=== PATIENT | male | born 1955 | race Caucasian/White ===

== ENCOUNTER 2018-10-24 01:48 | Inpatient (IN) | payer BC, OTHER ==
--- NOTE | 2018-10-24 02:16 | PDOC ---
History of Present Illness - General Stated Complaint: CHEST PAIN Time Seen by Provider: 10/24/18 02:16 - History of Present Illness Initial Comments: 10/24/18 03:01 The patient is a 62 year old male with a history of HTN, HLD, Heart Murmur who presents for evaluation of racing heart. The patient reports that he began experiencing a sensation of racing heart with associated palpitations and a flushed sensation throughout the evening preventing him from sleeping prompting his presentation to the ED for further evaluation. He notes that he saw his primary care provider Dr. Ruff yesterday who noted that his known heart murmur was more prominent than usually and was schedule for echo next week. The patient notes in addition that he has been more hypertensive than usual over the past 24 hours. He otherwise denies fevers, chills, SOB, chest pain, nausea, vomiting, abdominal pain, or changes with urination or bowel movements. Review of Systems - Review of Systems Comments:: 10/24/18 03:07 Constitutional: No fevers, chills, fatigue, malaise HEENT: No Rhinorrhea, nasal congestion, visual changes Cardiovascular: Palpitations, Lightheadedness. No chest pain, syncope, Respiratory: No Cough, SOB, Hemoptysis, Gastrointestinal: No Abdominal pain, Nausea, Vomiting, Constipation, Diarrhea, Melena Genitourinary: No Dysuria, Frequency, Urgency, Hesitancy, Hematuria, Flank pain Musculoskeletal: No Myalgia, arthralgia Skin: No rashes, itching, bruising, pallor Neurologic: No Headache, Dizziness, Numbness, Weakness, or Tingling Psychiatric: No Hallucinations. No SI or HI *Physical Exam - Physical Exam Comments: 10/24/18 03:08 General Appearance: Nourished. No Apparent Distress HEENT: No Pharyngeal Erythema, Tonsillar Exudate, Tonsillar Erythema Neck: No Cervical Lymphadenopathy Respiratory/Chest: Lungs Clear, Normal Breath Sounds. No Crackles, Rales, Rhonchi, Wheezing Cardiovascular: Regular Rhythm, Regular Rate. 2/6 systolic murmur noted on exam. No Gallops, Rubs Gastrointestinal/Abdominal: Normal Bowel Sounds, Soft. No Guarding, Rebound, Tenderness Musculoskeletal: No CVA Tenderness Extremity: Normal Capillary Refill Integumentary: Normal Color, Dry, Warm Neurologic: Fully Oriented, Alert, Normal Mood/Affect, Normal Response, ED Treatment Course - LABORATORY CBC & Chemistry Diagram: 10/24/18 03:00 10/24/18 03:00 Medical Decision Making - Medical Decision Making 10/24/18 03:09 The patient is a 62 year old male with a history of HTN, HLD, Heart Murmur who presents for evaluation of racing heart. Differential includes but is not limited to: ACS, Arrhythmia, thyroid disfunction, Infectious, Metabolic Derangement. Given the patient's history and physical exam, we will obtain a cbc, cmp, troponin, tsh, ekg, chest plain film to evaluate further. We will continue to monitor and reassess while here in the ED. 10/24/18 04:42 CBC, cmp, troponin, tsh are unremarkable. Chest plain film demonstrates no acute findings. Given the patient's cardiac risk factors and symptoms, we believe he requires observation admission for further monitoring and cardiology eval. We discussed the case with the admitting team who accepted the patient for admission. *DC/Admit/Observation/Transfer Diagnosis at time of Disposition: Palpitations, Near syncope - Discharge Dispostion Condition at time of disposition: Stable Decision to Admit order: Yes - Referrals - Patient Instructions - Post Discharge Activity
--- NOTE | 2018-10-24 02:41 | PDOC ---
Attending Attestation - Resident Resident Name: Eddie Larose - ED Attending Attestation I have performed the following: I have examined & evaluated the patient, The case was reviewed & discussed with the resident, I agree w/resident's findings & plan - HPI HPI: 10/24/18 03:49 62-year-old male with palpitations, worsening now with a flushed sensation. Patient was told by his primary care physician that he should follow up with cardiology because he was found to have a worsening murmur in the office today. Patient states the palpitations became worse overnight prompting him to come in for evaluation. There is no associated chest pain. - Physicial Exam PE: 10/24/18 03:50 GENERAL: Awake, in no acute distress HEAD: No signs of trauma EYES: ENT:clear without exudates. Moist mucosa NECK: Normal ROM, LUNGS:. Normal work of breathing. HEART: Regular rate and rhythm, ABDOMEN: Soft, nondistended CHEST WALL: BACK: No midline tenderness. EXTREMITIES:. No erythema, or tenderness NEUROLOGICAL: Alert, SKIN: Warm, Dry - Medical Decision Making 10/24/18 03:50 62-year-old male with intermittent palpitations and lightheadedness/flushing now with worsening murmur EKG shows a sinus rhythm with some artifact Plan for observation due to worsening symptoms
[2018-10-24 02:59] VITALS: BMI 36.6
[2018-10-24 03:12] LABS: BASO % 0.5 % (0-2.0); EOS % 1.3 % (0-4.5); HEMATOCRIT 51.3 % (35.4-49); HEMOGLOBIN 17.1 GM/dL (11.7-16.9); LYMPH % 28.3 % (8-40); MCH 28.3 pg (25.7-33.7); MCHC 33.4 g/dl (32.0-35.9); MEAN CELL VOLUME 84.8 fl (80-96); MEAN PLT VOLUME 9.2 fl (7.5-11.1); MONO % 6.8 % (3.8-10.2); NEUT % 63.1 % (42.8-82.8); PLATELET COUNT 159 K/MM3 (134-434); RBC 6.04 M/mm3 (4.00-5.60); WHITE BLOOD COUNT 6.8 K/mm3 (4.0-10.0)
[2018-10-24 03:52] LABS: ALBUMIN 4.2 g/dl (3.4-5.0); ALK PHOS 88 U/L (45-117); ANION GAP 6 MMOL/L (8-16); BILIRUBIN,TOTAL 0.6 mg/dL (0.2-1); BLOOD UREA NITROGEN 20 mg/dL (7-18); CHLORIDE 104 mmol/L (98-107); CO2 27 mmol/L (21-32); CREATININE 1.2 mg/dL (0.55-1.3); GLUCOSE,RANDOM 93 mg/dL (74-106); POTASSIUM 4.9 mmol/L (3.5-5.1); SGOT/AST 36 U/L (15-37); SGPT/ALT 18 U/L (13-61); SODIUM 137 mmol/L (136-145); TOT PROT 7.8 g/dl (6.4-8.2)
--- NOTE | 2018-10-24 04:38 | HP ---
CHIEF COMPLAINT: Palpitations, Near Syncope PCP: Dr. Ruff HISTORY OF PRESENT ILLNESS: This is a 62 y/o man with a past medical of Hypertension, Hyperlipidemia, Heart Murmur. Who presents to the ED with palpitations, SOB, and dizziness x last night. Patient reports being awakened from sleep with the feeling that his heart was racing. He reports that the palpitations lasted for one hour. He reports seeing his PCP yesterday and of note his Heart Murmur was louder. Patient reports being scheduled for a Echo and Carotid Doppler. Patient's reports that he was on the wrong medication for about 1 month. Patient denies fever, chills, cough, CP, AP, N/V/D, constipation, dysuria. ER course was notable for: (1) Troponin I 0.02 (2) EKG- SR with artifact (3) Chest Xray- image no infiltrate no effusions Recent Travel: None PAST MEDICAL HISTORY: HTN HLD Heart Murmur PAST SURGICAL HISTORY: Right Rotator Cuff Repair Social History: Smoking: Former 1PPD 40+ hx, quit 4 yrs ago Alcohol: Occasional Drugs: Denies Lives with and child Family History: Father- Bone Ca, Mother- COPD, HOME MEDICATIONS: REVIEW OF SYSTEMS CONSTITUTIONAL: Absent: fever, chills, diaphoresis, generalized weakness, malaise, loss of appetite, weight change HEENT: Absent: rhinorrhea, nasal congestion, throat pain, throat swelling, difficulty swallowing, mouth swelling, ear pain, eye pain, visual changes CARDIOVASCULAR: near syncope, palpitations Absent: chest pain, irregular heart rate, lightheadedness, peripheral edema RESPIRATORY: shortness of breath Absent: cough, dyspnea with exertion, orthopnea, wheezing, stridor, hemoptysis GASTROINTESTINAL: Absent: abdominal pain, abdominal distension, nausea, vomiting, diarrhea, constipation, melena, hematochezia GENITOURINARY: Absent: dysuria, frequency, urgency, hesitancy, hematuria, flank pain, genital pain MUSCULOSKELETAL: Absent: myalgia, arthralgia, joint swelling, back pain, neck pain SKIN: Absent: rash, itching, pallor HEMATOLOGIC/IMMUNOLOGIC: Absent: easy bleeding, easy bruising, lymphadenopathy, frequent infections ENDOCRINE: Absent: unexplained weight gain, unexplained weight loss, heat intolerance, cold intolerance NEUROLOGIC: dizziness Absent: headache, focal weakness or paresthesias, unsteady gait, seizure, mental status changes, bladder or bowel incontinence PSYCHIATRIC: Absent: anxiety, depression, suicidal or homicidal ideation, hallucinations. PHYSICAL EXAMINATION Vital Signs - 24 hr 10/24/18 01:48 Temperature 98.8 F Pulse Rate 59 L Respiratory 17 Rate Blood Pressure 145/91 O2 Sat by Pulse 97 Oximetry (%) GENERAL: Awake, alert, and fully oriented, in no acute distress. HEAD: Normal with no signs of trauma. EYES: Pupils equal, round and reactive to light, extraocular movements intact, sclera anicteric, conjunctiva clear. No lid lag. EARS, NOSE, THROAT: Ears normal, nares patent, oropharynx clear without exudates. Moist mucous membranes. NECK: Normal range of motion, supple without lymphadenopathy, JVD, or masses. LUNGS: Breath sounds equal, clear to auscultation bilaterally. No wheezes, and no crackles. No accessory muscle use. HEART: Regular rate and rhythm, normal S1 and S2, No rub or gallop. Systolic murmur ABDOMEN: Soft, nontender, not distended, normoactive bowel sounds, no guarding, no rebound, no masses. No hepatomegaly or splenomegaly. MUSCULOSKELETAL: Normal range of motion at all joints. No bony deformities or tenderness. No CVA tenderness. UPPER EXTREMITIES: 2+ pulses, warm, well-perfused. No cyanosis. No clubbing. No peripheral edema. LOWER EXTREMITIES: 2+ pulses, warm, well-perfused. No calf tenderness. No peripheral edema. NEUROLOGICAL: Cranial nerves II-XII intact. Normal speech. Normal gait. PSYCHIATRIC: Cooperative. Good eye contact. Appropriate mood and affect. SKIN: Warm, dry, normal turgor, no rashes or lesions noted, normal capillary refill. Laboratory Results - last 24 hr 10/24/18 10/24/18 03:00 03:00 WBC 6.8 RBC 6.04 H Hgb 17.1 H Hct 51.3 H MCV 84.8 MCH 28.3 MCHC 33.4 RDW 15.0 Plt Count 159 MPV 9.2 Absolute Neuts (auto) 4.3 Neutrophils % 63.1 Lymphocytes % 28.3 Monocytes % 6.8 Eosinophils % 1.3 Basophils % 0.5 Nucleated RBC % 0 Sodium 137 Potassium 4.9 Chloride 104 Carbon Dioxide 27 Anion Gap 6 L BUN 20 H Creatinine 1.2 Creat Clearance w eGFR 61.76 Random Glucose 93 Calcium 9.0 Total Bilirubin 0.6 AST 36 ALT 18 Alkaline Phosphatase 88 Creatine Kinase 135 Troponin I < 0.02 Total Protein 7.8 Albumin 4.2 TSH 1.31 ASSESSMENT/PLAN: This is a 62 y/o man with a PMHx of HTN, HLD, Heart Murmur, placed on Telemetry Observation for Near Syncope, Palpitations for further evaluation of their emergent condition. Plan: See Problem List FEN PO fluids as tolerated Replete lytes prn Low Na, Low Cholesterol Diet DVT ppx OOB SCDs Consider AC if LOS > 48 hrs Code Status: Full Code Dispo: Observation Problem List - Problem (1) Near syncope Assessment/Plan: Likely secondary to arrhythmia Continue cardiac monitoring Appreciate Cardiology consult Echo Carotid Doppler Lipid Panel Fall Precautions Monitor CBC, BMP Code(s): R55 - SYNCOPE AND COLLAPSE (2) Palpitations Assessment/Plan: Continue cardiac monitoring Appreciate Cardiology consult Serial Enzymes neg x1 will trend Echo in am Carotid Doppler in am Code(s): R00.2 - PALPITATIONS (3) HTN (hypertension) Assessment/Plan: Stable Monitor BP Continue home meds Monitor renal function Code(s): I10 - ESSENTIAL (PRIMARY) HYPERTENSION Visit type - Emergency Visit Emergency Visit: Yes ED Registration Date: 10/24/18 Care time: The patient presented to the Emergency Department on the above date and was hospitalized for further evaluation of their emergent condition. - New Patient This patient is new to me today: Yes Date on this admission: 10/24/18 - Critical Care Critical Care patient: No
[2018-10-24 05:49] LABS: URINE APPEARANCE CLEAR; URINE BILIRUBIN NEGATIVE (NEGATIVE); URINE COLOR YELLOW; URINE GLUCOSE (UA) NEGATIVE (NEGATIVE); URINE KETONE NEGATIVE (NEGATIVE); URINE LEUK ESTERASE NEGATIVE (NEGATIVE); URINE NITRITE NEGATIVE (NEGATIVE); URINE PROTEIN NEGATIVE (NEGATIVE); URINE UROBILINOGEN 0.2 mg/dL (0.2-1.0)
--- NOTE | 2018-10-24 08:34 | EKG ---
Test Reason : Blood Pressure : / mmHG Vent. Rate : 062 BPM Atrial Rate : 062 BPM P-R Int : 124 ms QRS Dur : 082 ms QT Int : 424 ms P-R-T Axes : 053 018 051 degrees QTc Int : 430 ms NORMAL SINUS RHYTHM WITH SINUS ARRHYTHMIA LOW VOLTAGE QRS BORDERLINE ECG NO PREVIOUS ECGS AVAILABLE Confirmed by MD AQUILES, KOLBY ([id number]) on 10/24/2018 8:34:27 AM Referred By: Donita ANDERSON Confirmed By:KOLBY KWAN MD
--- NOTE | 2018-10-24 09:28 | CON.CARD ---
Consult Consult Specialty:: Cardiology Referred by:: Dr. Ruff Reason for Consultation:: palpitations - History of Present Illness Chief Complaint: palpitations History of Present Illness: 62 year old man with a pmh of HTN, HLD, Heart Murmur admitted with c/o palpitations. pt seen and examined in the ER in nad. states he had a recurrent brief episode of palpitations this am while in the ER. Tele reviewed, correlated with PVCs. pt states episode last night woke him from sleep and was associated with a flushed sensation. notes his BP has been higher than usual as he has been on a lower dose of Olmesartan. denies chest pain, sob, syncope or near syncope. no pnd, orthopnea, or LE edema. - History Source History Provided By: Patient, Family Member Limitations to Obtaining History: No Limitations - Past Medical History Cardio/Vascular: Yes: HTN - Alcohol/Substance Use Hx Alcohol Use: No - Smoking History Smoking history: Never smoked Have you smoked in the past 12 months: No - Social History Usual Living Arrangement: With Spouse ADL: Independent History of Recent Travel: No Home Medications - Allergies Allergies/Adverse Reactions: Allergies Allergy/AdvReac Type Severity Reaction Status Date / Time penicillin G Allergy Verified 10/24/18 05:28 - Home Medications Home Medications: Ambulatory Orders Amlodipine Bes/Olmesartan Med [Amlodipine-Olmesartan 5-40 mg] 1 each PO ONCE Atorvastatin Ca [Lipitor] 20 mg PO HS 10/24/18 Family Disease History - Family Disease History Family History: Denies Review of Systems - Review of Systems Constitutional: denies: No Symptoms, Chills, Diaphoresis, Fever, Lethargy, Loss of Appetite, Malaise, Night Sweats, Unintentional Wgt. Loss, Weakness, Other Eyes: denies: No Symptoms, Blind Spots, Blurred Vision, Double Vision, Eye Pain , Floaters, Photophobia, Recent Change in Vision, Other HENT: denies: No Symptoms, Difficult Swallowing, Ear Discharge, Ear Pain, Epistaxis, Gingival Bleeding, Hearing Loss, Mouth Swelling, Nasal Congestion, Ocular Prosthesis, Throat Pain, Toothache, Ringing in Ears, Other Neck: denies: No Symptoms, Decreased ROM, Lumps, Pain on Movement, Stiffness, Swollen Glands, Tenderness, Other Cardiovascular: reports: Palpitations. denies: No Symptoms, Chest Pain, Edema, Shortness of Breath, Other Respiratory: denies: No Symptoms, Cough, Exercise Intolerance, Hemoptysis, Orthopnea, PND, Snoring, SOB, SOB on Exertion, Wheezing, Other Gastrointestinal: denies: No Symptoms, Abdominal Pain, Bloating, Constipation, Diarrhea, Dysphagia, Indigestion, Melena, Nausea, Rectal Bleeding, Vomiting, Vomiting Blood, Other Genitourinary: denies: No Symptoms, Burning, Discharge, Dysuria, Flank Pain, Frequency, Hematuria, Incontinence, Lesions, Menses, Pain, Testicular Mass, Testicular Pain, Testicular Swelling, Urgency, Vaginal Bleeding, Other Breasts: denies: No Symptoms Reported, See HPI, Breast Implants, Discharge from Nipple, Lumps, Pain, Skin Changes, Other Musculoskeletal: denies: No Symptoms, Back Pain, Crepitus, Decreased ROM, Extremity Pain, Joint Pain, Joint Swelling, Muscle Pain, Muscle Cramps, Muscle Weakness, Other Integumentary: denies: No Symptoms, Blister, Bruising, Change in Color, Eczema, Erythema, Incision, Lesions, Lump, Pallor, Pruritis, Rash, Wound, Other Neurological: denies: No Symptoms, Change in LOC, Change in Speech, Confusion, Dizziness, Headache, Incoordination, Numbness, Parasthesia, Pre-Existing Deficit , Seizure, Syncope, Tremors, Unsteady Gait, Weakness, Other Endocrine: denies: No Symptoms, Excessive Sweating, Flushing, Increased Hunger, Increased Thirst, Intolerance to Cold, Intolerance to Heat, Unexplained Weight Gain, Unexplained Weight Loss, Other Hematology/Lymphatic: denies: No Symptoms, Easily Bruised, Excessive Bleeding, Swollen Glands, Other Psychiatric: denies: No Symptoms, Altered Sleep Pattern, Anxiety, Depression, Hallucinations, Panic, Paranoia, Suicidal, Other - Risk Factors Known Risk Factors: Yes: Hypercholesterolemia, Hypertension Vital Signs: Vital Signs Temperature 97.7 F 10/24/18 06:19 Pulse Rate 64 10/24/18 06:19 Respiratory Rate 17 10/24/18 01:48 Blood Pressure 160/86 10/24/18 06:19 O2 Sat by Pulse Oximetry (%) 99 10/24/18 06:19 Constitutional: Yes: No Distress, Calm Eyes: Yes: Conjunctiva Clear, EOM Intact HENT: Yes: Atraumatic, Normocephalic Neck: Yes: Supple, Trachea Midline Respiratory: Yes: Regular, CTA Bilaterally. No: Rales, Rhonchi, Wheezes Gastrointestinal: Yes: Normal Bowel Sounds, Soft. No: Distention, Tenderness Cardiovascular: Yes: Regular Rate and Rhythm. No: Bradycardia, Tachycardia, Pulse Irregular, Gallop, Rub, Varicosities JVD: No Carotid Bruit: No PMI: Non-Displaced Heart Sounds: Yes: S1, S2. No: Split S2, S3, S4, Clicks, Gallop, Rub, Bruit Murmur: No: Systolic Murmur, Diastolic Murmur Musculoskeletal: Yes: WNL Extremities: Yes: WNL Edema: No Peripheral Pulses WNL: Yes Peripheral Pulses: 2+ Left Doralis Pedis, 2+ Right Dorsalis Pedis Neurological: Yes: Alert, Oriented Psychiatric: Yes: Alert, Oriented - Other Data Labs, Other Data: CBC, BMP 10/24/18 03:00 10/24/18 03:00 Troponin, BNP 10/24/18 10/24/18 03:00 03:00 Troponin I < 0.02 B-Natriuretic Peptide 58.4 Troponin, BNP 10/24/18 10/24/18 03:00 03:00 Troponin I < 0.02 B-Natriuretic Peptide 58.4 NSR with sinus arrhythmia 62bpm. Echo: Pending Imaging - Results Chest X-ray: Report Reviewed, Image Reviewed EKG: Report Reviewed, Image Reviewed Other: Report Reviewed, Image Reviewed (tele-nsr, frequent PVCs, possible PSVT) Assessment/Plan 62 year old man with a pmh of HTN, HLD, Heart Murmur admitted with c/o palpitations. pt seen and examined in the ER in nad. states he had a recurrent brief episode of palpitations this am while in the ER. Tele reviewed, correlated with PVCs. pt states episode last night woke him from sleep and was associated with a flushed sensation. notes his BP has been higher than usual as he has been on a lower dose of Olmesartan. denies chest pain, sob, syncope or near syncope. no pnd, orthopnea, or LE edema. Palpitations-likely due to PVCs possible PSVT -tele in ER showed PVCs corresponding with his palpitations this am -possible PSVT overnight did not correspond with symptoms -echo done this am results pending -TSH and electrolytes wnl -cardiac enzymes wnl -if echo wnl, would be acceptable for pt to have further work up as outpatient. Recommend close outpatient fup and would consider a stress test and additional home event monitoring to further evaluate arrhythmia. -if symptoms and PVCs continue would then consider starting a bblocker.
[2018-10-24 09:30] LABS: CHOLESTEROL 195 mg/dL (50-200); HDL CHOLESTEROL 64 mg/dL (40-60); TRIGLYCERIDES 107 mg/dL (0-150)
--- NOTE | 2018-10-24 10:55 | PN ---
Progress Note, Physician Chief Complaint: Palpitations History of Present Illness: NAD Seen by Cardiology BP elevated Labs unremarkable EKG-NSR with SA for Echo and carotid U/S today - Objective Vital Signs: Vital Signs Temperature 97.7 F 10/24/18 06:19 Pulse Rate 64 10/24/18 06:19 Respiratory Rate 17 10/24/18 01:48 Blood Pressure 160/86 10/24/18 06:19 O2 Sat by Pulse Oximetry (%) 99 10/24/18 06:19 Constitutional: Yes: Well Nourished, No Distress, Calm, Obese Cardiovascular: Yes: Regular Rate and Rhythm Respiratory: Yes: Regular Gastrointestinal: Yes: WNL, Abdomen, Obese Genitourinary: Yes: WNL Musculoskeletal: Yes: WNL Extremities: Yes: WNL Edema: No Peripheral Pulses WNL: Yes Neurological: Yes: Alert, Oriented Psychiatric: Yes: Alert, Oriented Labs: CBC, BMP 10/24/18 03:00 10/24/18 03:00 Problem List - Problems (1) Palpitations Assessment/Plan: -Seen by cardiology -Echo+ carotid -trops negative -If all testing negative, can be discharged as per cardiology with Stress test + Holter monitor and f/u with cardiology outpatient. Code(s): R00.2 - PALPITATIONS (2) HTN (hypertension) Assessment/Plan: -Amlodipine and losartan Code(s): I10 - ESSENTIAL (PRIMARY) HYPERTENSION Assessment/Plan see problem list
--- NOTE | 2018-10-24 11:39 | ECHO ---
Name: CLAIR PALENCIA Exam:Adult Echocardiogram Study Date: 10/24/2018 09:41 AM Age: 62 yrs Reason For Study: Palpitations Height: 70 in Weight: 255 lb BSA: 2.3 m2 MMode/2D Measurements & Calculations Ao root diam: 3.0 cm LAV (MOD-bp): 63.8 ml Doppler Measurements & Calculations MV E max michael: 77.1 cm/sec Ao V2 max: 257.2 cm/sec MV A max michael: 103.4 cm/sec Ao max P.5 mmHg MV E/A: 0.75 Ao V2 mean: 167.1 cm/sec MV dec time: 0.27 sec Ao mean P.3 mmHg Ao V2 VTI: 47.2 cm LV V1 max P.7 mmHg PA V2 max: 123.5 cm/sec LV V1 mean P.0 mmHg PA max P.1 mmHg LV V1 max: 129.1 cm/sec LV V1 mean: 77.9 cm/sec LV V1 VTI: 26.6 cm Med Peak E' Michael: 6.0 cm/sec Med E/e': 12.9 Lat Peak E' Michael: 9.6 cm/sec Lat E/e': 8.1 Procedure A two-dimensional transthoracic echocardiogram with color flow and Doppler was performed. The study w as technically difficult with many images being suboptimal in quality. The patient was in normal sinus r hythm during the exam. Left Ventricle Left ventricular systolic function is grossly normal. E/A reversal consistent with but not diagnostic of poor LV compliance. Right Ventricle The right ventricle is normal size. The right ventricular systolic function is normal. Atria The left atrial size is normal. Right atrial size is normal. Mitral Valve The mitral valve is normal. There is no mitral regurgitation noted. Tricuspid Valve The tricuspid valve is normal. There is trace tricuspid regurgitation. Aortic Valve Fibrocalcific aortic valve without stenosis. The aortic valve opens well. No aortic regurgitation is present. Pulmonic Valve The pulmonic valve is not well visualized. The pulmonic valve is not well seen, but is grossly normal . There is no pulmonic valvular regurgitation. Great Vessels The aortic root is not well visualized but is probably normal size. Pericardium/Pleura There is no pericardial effusion. Interpretation Summary Left ventricular systolic function is grossly normal. E/A reversal consistent with but not diagnostic of poor LV compliance The right ventricular systolic function is normal. There is trace tricuspid regurgitation. Fibrocalcific aortic valve without stenosis. There is no pericardial effusion. MD Norris Christian 10/24/2018 11:38 AM
[2018-10-24] MEDS ORDERED: amLODIPine BESYLATE 5 MG TABLET (FP) ONE (18:23)
[2018-10-24] MEDS ORDERED: LOSARTAN POTASSIUM 50 MG TABLET (FP) ONE (18:23)
[2018-10-24] MEDS: LOSARTAN POTASSIUM 50 MG TABLET (FP) PO SCH ×2 (22:00→22:26)
[2018-10-24] MEDS: amLODIPine BESYLATE 5 MG TABLET (FP) PO SCH ×2 (22:00→22:26)
[2018-10-24] MEDS: ATORVASTATIN CA 20 MG TABLET (FP) PO SCH ×2 (22:00→22:26)
[2018-10-25 06:48] LABS: BASO % 0.4 % (0-2.0); EOS % 1.6 % (0-4.5); HEMATOCRIT 51.4 % (35.4-49); HEMOGLOBIN 17.1 GM/dL (11.7-16.9); LYMPH % 35.1 % (8-40); MCH 28.1 pg (25.7-33.7); MCHC 33.2 g/dl (32.0-35.9); MEAN CELL VOLUME 84.6 fl (80-96); MEAN PLT VOLUME 9.3 fl (7.5-11.1); MONO % 7.6 % (3.8-10.2); NEUT % 55.3 % (42.8-82.8); PLATELET COUNT 159 K/MM3 (134-434); RBC 6.08 M/mm3 (4.00-5.60); RDW 14.5 % (11.9-15.9); WHITE BLOOD COUNT 6.2 K/mm3 (4.0-10.0)
--- NOTE | 2018-10-25 10:29 | PN ---
Progress Note, Physician History of Present Illness: c/o palpitations no cp - Current Medication List Current Medications: Active Medications Amlodipine Besylate (Norvasc -) 5 mg PO DAILY [facility] Last Admin: 10/24/18 22:26 Dose: Not Given Atorvastatin Calcium (Lipitor -) 20 mg PO HS [facility] Last Admin: 10/24/18 22:26 Dose: Not Given Losartan Potassium (Cozaar -) 50 mg PO DAILY [facility] Last Admin: 10/24/18 22:26 Dose: Not Given - Objective Vital Signs: Vital Signs Temperature 98.3 F 10/25/18 06:00 Pulse Rate 56 L 10/25/18 06:00 Respiratory Rate 20 10/25/18 06:00 Blood Pressure 98/59 L 10/25/18 06:00 O2 Sat by Pulse Oximetry (%) 99 10/24/18 20:25 Cardiovascular: Yes: Pulse Irregular, S1, S2 Respiratory: Yes: Regular, CTA Bilaterally Gastrointestinal: Yes: Normal Bowel Sounds, Soft Labs: CBC, BMP 10/25/18 05:30 10/24/18 03:00 Problem List - Problems (1) Arrhythmia Assessment/Plan: dc norvasc continue with tele stress test Code(s): I49.9 - CARDIAC ARRHYTHMIA, UNSPECIFIED (2) HTN (hypertension) Assessment/Plan: monitor on [place] Code(s): I10 - ESSENTIAL (PRIMARY) HYPERTENSION (3) Near syncope Assessment/Plan: w/u neg stress test Code(s): R55 - SYNCOPE AND COLLAPSE
[2018-10-25] MEDS: amLODIPine BESYLATE 5 MG TABLET (FP) PO SCH (11:01)
[2018-10-25] MEDS: LOSARTAN POTASSIUM 50 MG TABLET (FP) PO SCH (11:01)
--- NOTE | 2018-10-25 13:40 | PN ---
Progress Note, Physician Chief Complaint: Palpitations History of Present Illness: 62 year old man with a pmh of HTN, HLD, Heart Murmur admitted with c/o palpitations. Telemetry showing frequent atrial premature contractions and occasional PVCs. No clinically important arrhythmias noted at this point. The patient continues to experience symptoms with the APCs. - Current Medication List Current Medications: Active Medications Atorvastatin Calcium (Lipitor -) 20 mg PO HS [facility] Last Admin: 10/24/18 22:26 Dose: Not Given Losartan Potassium (Cozaar -) 50 mg PO DAILY [facility] Last Admin: 10/25/18 11:01 Dose: 50 mg - Objective Vital Signs: Vital Signs Temperature 98.3 F 10/25/18 06:00 Pulse Rate 56 L 10/25/18 06:00 Respiratory Rate 20 10/25/18 06:00 Blood Pressure 98/59 L 10/25/18 06:00 O2 Sat by Pulse Oximetry (%) 99 10/24/18 20:25 Constitutional: Yes: No Distress, Calm, Obese Eyes: Yes: WNL, Conjunctiva Clear, EOM Intact HENT: Yes: WNL, Atraumatic, Normocephalic Neck: Yes: WNL, Supple, Trachea Midline Cardiovascular: Yes: WNL, Regular Rate and Rhythm Respiratory: Yes: WNL, Regular, CTA Bilaterally Gastrointestinal: Yes: WNL, Normal Bowel Sounds, Soft ...Rectal Exam: Yes: Deferred Genitourinary: Yes: WNL Musculoskeletal: Yes: WNL Extremities: Yes: WNL Edema: No Peripheral Pulses WNL: Yes Integumentary: Yes: WNL Neurological: Yes: WNL, Alert, Oriented Psychiatric: Yes: WNL, Alert Labs: CBC, BMP 10/25/18 05:30 10/24/18 03:00 Assessment/Plan 62 year old man with a pmh of HTN, HLD, Heart Murmur admitted with c/o palpitations. Telemetry showing frequent atrial premature contractions and occasional PVCs. No clinically important arrhythmias noted at this point. The patient continues to experience symptoms with the APCs. The patient's echocardiogram was essentially normal. X Would stop losartan. Start Toprol-XL 50 mg daily. Continue the other medications as currently. Consider an outpatient evaluation with a lamination builder for elevated hemoglobin. Please arrange for an outpatient continues cardiac monitoring for one week. Please arrange for an outpatient follow-up visit with . The patient is stable from the cardiac standpoint. Please do not hesitate to call us PRN.
--- NOTE | 2018-10-25 19:40 | CONSULT ---
Consultation: REQUESTING PROVIDER: CONSULT REQUEST: We have been asked to medically evaluate this patient for ( specify). HISTORY OF PRESENT ILLNESS: 62 y/o M w/PMH of HTN, HLD presents to the ER with palpitations and dizziness. He has had palpitations in the past but these were worse than usual and did not stop which prompted him to come to the ER. He denies N/V/F/C, diarrhea, constipation, CP, SOB, abd pain, blood in stool or urine, sick contacts, recent travel. He was found to have erythrocytosis in ER and heme was consulted. He has no hx of erythrocytosis and no family hx as well. He currently feels better. He has not been tested for MONAE. PMH: HTN, HLD PSHx: denies SH: Smoked 1ppd until 3-5 years ago. Drinks 2 beers once per weekend. No drug use. FH: Father with kidney ca. No heme d/o noted Allergies: Pen G REVIEW OF SYSTEMS: CONSTITUTIONAL: Absent: fever, chills HEENT: Absent: visual changes CARDIOVASCULAR: +palpitations Absent: chest pain, palpitations RESPIRATORY: Absent: cough, shortness of breath, dyspnea with exertion GASTROINTESTINAL: Absent: abdominal pain, nausea, vomiting, diarrhea, constipation, hematochezia GENITOURINARY: Absent: dysuria, NEUROLOGIC: Absent: headache PHYSICAL EXAMINATION Vital Signs - 24 hr 10/24/18 10/24/18 10/25/18 20:25 22:00 02:00 Temperature 97.7 F 98 F Pulse Rate 54 L 56 L 56 L Respiratory 17 14 16 Rate Blood Pressure 147/75 105/65 127/64 O2 Sat by Pulse 99 Oximetry (%) 10/25/18 10/25/18 10/25/18 06:00 08:00 09:00 Temperature 98.3 F Pulse Rate 56 L 59 L Respiratory 20 20 Rate Blood Pressure 98/59 L 145/80 O2 Sat by Pulse 99 Oximetry (%) 10/25/18 10/25/18 10/25/18 10:00 12:00 16:00 Temperature 98 F Pulse Rate 73 58 L 83 Respiratory 20 20 20 Rate Blood Pressure 123/75 137/87 138/74 O2 Sat by Pulse Oximetry (%) 10/25/18 18:07 Temperature 97.6 F Pulse Rate 57 L Respiratory 22 H Rate Blood Pressure 137/66 O2 Sat by Pulse Oximetry (%) GENERAL: Awake, alert, and fully oriented, in no acute distress. HEAD: Normal with no signs of trauma. EYES: extraocular movements intact, sclera anicteric, conjunctiva clear EARS, NOSE, THROAT: Ears normal, nares patent. Moist mucous membranes. NECK: Normal range of motion, supple LUNGS: Breath sounds equal, clear to auscultation bilaterally. No wheezes, and no crackles. No accessory muscle use. HEART: Regular rate and rhythm, normal S1 and S2 ABDOMEN: Soft, nontender, not distended, normoactive bowel sounds MUSCULOSKELETAL: Normal range of motion at all joints. No bony deformities or tenderness. No CVA tenderness. LOWER EXTREMITIES: warm, well-perfused. No peripheral edema. NEUROLOGICAL: Cranial nerves II-XII grossly intact. Normal speech. Gait not observed. PSYCHIATRIC: Cooperative. Good eye contact. Appropriate mood and affect. SKIN: Warm, dry Laboratory Results - last 24 hr 10/25/18 10/25/18 05:30 05:30 WBC 6.2 RBC 6.08 H Hgb 17.1 H Hct 51.4 H MCV 84.6 MCH 28.1 MCHC 33.2 RDW 14.5 Plt Count 159 MPV 9.3 Absolute Neuts (auto) 3.4 Neutrophils % 55.3 Lymphocytes % 35.1 D Monocytes % 7.6 Eosinophils % 1.6 Basophils % 0.4 Nucleated RBC % 0 Ferritin 315.1 Active Medications Generic Name Dose Route Start Last Admin Trade Name Freq PRN Reason Stop Dose Admin Atorvastatin Calcium 20 mg 10/24/18 22:00 10/24/18 22:26 Lipitor - PO Not Given HS JULIANNA Losartan Potassium 50 mg 10/24/18 18:15 10/25/18 11:01 Cozaar - PO 50 mg DAILY JULIANNA Administration ASSESSMENT/PLAN: 62 y/o M w/PMH of HTN, HLD presents to the ER with palpitations and dizziness. Found to have erythrocytosis. Erythrocytosis -RAJ 2, EPO levels. May be secondary to underlying MONAE. Pt will need MONAE testing. -Consider checking testosterone levels, ABGs, CT abd/pelvis to check for liver , spleen, kidney etiology. -Will also check LDH, uric acid. Dispo: We will continue to follow the patient. Thank you for this consultative opportunity. Visit type - Emergency Visit Emergency Visit: Yes ED Registration Date: 10/25/18 Care time: The patient presented to the Emergency Department on the above date and was hospitalized for further evaluation of their emergent condition. - New Patient This patient is new to me today: Yes Date on this admission: 10/25/18 - Critical Care Critical Care patient: No
--- NOTE | 2018-10-25 20:13 | PN ---
Teaching Attending Note Name of Resident: Carlos Alberto Rincon ATTENDING PHYSICIAN STATEMENT I saw and evaluated the patient. I reviewed the resident's note and discussed the case with the resident. I agree with the resident's findings and plan as documented. SUBJECTIVE: Patient seen and examined 62 year old presents with palpitations. Found to have erythrocytosis with Hct 51%. Some dizziness, No pruritus, visual disturbances. Last Vital Signs Temp Pulse Resp BP Pulse Ox 97.6 F 57 L 22 H 137/66 99 10/25/18 18:07 10/25/18 18:07 10/25/18 18:07 10/25/18 18:07 10/25/18 09:00 HEENT: LILLIAN, EOM Intact Oropharynx: No thrush, No mucositis Neck: Supple Nodes: Without adenopathy Breasts: Without masses Cor: RSR, No murmurs, No gallops Lungs: Clear to P&A Abd: Soft, Normal bowel sounds, No organomegaly testes descended , circumcised Ext:No significant edema Skin: No rashes, Integument intact CBC, BMP 10/25/18 05:30 10/24/18 03:00 Current Medications Generic Name Dose Route Start Last Admin Trade Name Freq PRN Reason Stop Dose Admin Atorvastatin Calcium 20 mg 10/24/18 22:00 10/24/18 22:26 Lipitor - PO Not Given HS JULIANNA Losartan Potassium 50 mg 10/24/18 18:15 10/25/18 11:01 Cozaar - PO 50 mg DAILY JULIANNA Administration Impression: Erythrocytosis --? etiology Absence of WBC , diff, platelet abnormalities against dx of P. vera. Likely secondary erythrocytosis To proceed with RAJ-2 and epo levels. If unremarkable - ABG, testosterone. CT of abdomen to look for hepatosplenomegaly, renal disease. ?MONAE as etiology May need additional testing as outpatient with RBC mass and plasma volume studies. Will need phlebotomy to Hct 45% to optimize rheology of blood flow. OBJECTIVE: ASSESSMENT AND PLAN:
[2018-10-25] MEDS: ATORVASTATIN CA 20 MG TABLET (FP) PO SCH (21:18)
[2018-10-26] MEDS: LOSARTAN POTASSIUM 50 MG TABLET (FP) PO SCH (09:58)
[2018-10-26] MEDS ORDERED: REGADENOSON 0.4 MG/5 ML PRE-FILLED SYRINGE IVPUSH ONE ×2 (11:28→13:30)
--- NOTE | 2018-10-26 14:55 | DS ---
Physical Examination Vital Signs: Vital Signs Temperature 98.8 F 10/26/18 14:00 Pulse Rate 64 10/26/18 14:00 Respiratory Rate 17 10/26/18 14:00 Blood Pressure 141/91 10/26/18 14:00 O2 Sat by Pulse Oximetry (%) 98 10/26/18 09:00 Constitutional: Yes: Calm Cardiovascular: Yes: Regular Rate and Rhythm, S1, S2 Respiratory: Yes: CTA Bilaterally Gastrointestinal: Yes: Normal Bowel Sounds, Soft Edema: No Neurological: Yes: Alert, Oriented Labs: CBC, BMP 10/25/18 05:30 10/24/18 03:00 Discharge Summary Reason For Visit: PALPITATIONS,PRE-SYNCOPE Current Active Problems Arrhythmia (Acute) HTN (hypertension) (Acute) Near syncope (Acute) Palpitations (Acute) Other Procedures: echo left ventricle systolic function normal. carotid doppler no significant stenosis Hospital Course: CHIEF COMPLAINT: Palpitations, Near Syncope PCP: Dr. Ruff HISTORY OF PRESENT ILLNESS: This is a 62 y/o man with a past medical of Hypertension, Hyperlipidemia, Heart Murmur. Who presents to the ED with palpitations, SOB, and dizziness x last night. Patient reports being awakened from sleep with the feeling that his heart was racing. He reports that the palpitations lasted for one hour. He reports seeing his PCP yesterday and of note his Heart Murmur was louder. Patient reports being scheduled for a Echo and Carotid Doppler. Patient's reports that he was on the wrong medication for about 1 month. Patient denies fever, chills, cough, CP, AP, N/V/D, constipation, dysuria. ER course was notable for: (1) Troponin I 0.02 (2) EKG- SR with artifact (3) Chest Xray- image no infiltrate no effusions admitted in telemetry stress done normal seen by [facility] HCT count further testing as outpatient palpitations started on toprol 50mg daily Condition: Stable - Instructions Referrals: Norris Christian MD [Staff Physician] - 1 Week Natan Desai MD [Staff Physician] - 2 Weeks (outpatient phlebotomy) Disposition: HOME - Home Medications Comprehensive Discharge Medication List: Ambulatory Orders Amlodipine Bes/Olmesartan Med [Amlodipine-Olmesartan 5-40 mg] 1 each PO ONCE Atorvastatin Ca [Lipitor] 20 mg PO HS 10/24/18
--- NOTE | 2018-10-26 16:11 | PN ---
Progress Note (short form) - Note Progress Note: placed a call to daughter rashard [phone]- no response will cancel discharge patient still having palpitations heme folllow up
[2018-10-26 17:45] LABS: ALBUMIN 3.7 g/dl (3.4-5.0); ALK PHOS 86 U/L (45-117); ANION GAP 6 MMOL/L (8-16); BILIRUBIN,TOTAL 0.5 mg/dL (0.2-1); BLOOD UREA NITROGEN 20 mg/dL (7-18); CHLORIDE 106 mmol/L (98-107); CO2 25 mmol/L (21-32); CREATININE 1.3 mg/dL (0.55-1.3); GLUCOSE,RANDOM 101 mg/dL (74-106); SGOT/AST 15 U/L (15-37); SGPT/ALT 22 U/L (13-61); SODIUM 137 mmol/L (136-145)
[2018-10-26] MEDS: ATORVASTATIN CA 20 MG TABLET (FP) PO SCH (21:04)
[2018-10-27 07:16] LABS: BASO % 0.4 % (0-2.0); EOS % 1.8 % (0-4.5); HEMATOCRIT 51.9 % (35.4-49); HEMOGLOBIN 17.4 GM/dL (11.7-16.9); LYMPH % 27.6 % (8-40); MCH 28.2 pg (25.7-33.7); MCHC 33.6 g/dl (32.0-35.9); MEAN CELL VOLUME 83.9 fl (80-96); MEAN PLT VOLUME 9.2 fl (7.5-11.1); MONO % 7.8 % (3.8-10.2); NEUT % 62.4 % (42.8-82.8); PLATELET COUNT 151 K/MM3 (134-434); RBC 6.19 M/mm3 (4.00-5.60); RDW 14.7 % (11.9-15.9)
[2018-10-27 07:21] LABS: ALBUMIN 3.6 g/dl (3.4-5.0); ALK PHOS 87 U/L (45-117); ANION GAP 8 MMOL/L (8-16); BILIRUBIN,TOTAL 0.7 mg/dL (0.2-1); BLOOD UREA NITROGEN 21 mg/dL (7-18); CALCIUM 8.7 mg/dL (8.5-10.1); CHLORIDE 106 mmol/L (98-107); CO2 26 mmol/L (21-32); CREATININE 1.2 mg/dL (0.55-1.3); GLUCOSE,RANDOM 86 mg/dL (74-106); POTASSIUM 4.3 mmol/L (3.5-5.1); SGOT/AST 15 U/L (15-37); SGPT/ALT 22 U/L (13-61); SODIUM 139 mmol/L (136-145); TOT PROT 6.6 g/dl (6.4-8.2)
[2018-10-27] MEDS: LOSARTAN POTASSIUM 50 MG TABLET (FP) PO SCH (09:23)
--- NOTE | 2018-10-27 10:19 | PN ---
Progress Note, Physician Chief Complaint: patient seen and examined he shaved today got a little light headed now resting says palpitations are better - Current Medication List Current Medications: Active Medications Atorvastatin Calcium (Lipitor -) 20 mg PO [facility] Last Admin: 10/26/18 21:04 Dose: 20 mg Losartan Potassium (Cozaar -) 50 mg PO DAILY [facility] Last Admin: 10/27/18 09:23 Dose: 50 mg Metoprolol Succinate (Toprol Xl -) 50 mg PO DAILY [facility] Last Admin: 10/27/18 09:23 Dose: 50 mg - Objective Vital Signs: Vital Signs Temperature 97.9 F 10/27/18 02:00 Pulse Rate 55 L 10/27/18 06:00 Respiratory Rate 22 H 10/27/18 06:00 Blood Pressure 139/75 10/27/18 06:00 O2 Sat by Pulse Oximetry (%) 94 L 10/26/18 21:00 Constitutional: Yes: Calm Cardiovascular: Yes: Regular Rate and Rhythm, S1, S2 Respiratory: Yes: CTA Bilaterally Gastrointestinal: Yes: Normal Bowel Sounds, Soft Edema: No Neurological: Yes: Alert, Oriented Labs: CBC, BMP 10/27/18 05:30 10/27/18 05:30 Problem List - Problems (1) HTN (hypertension) Assessment/Plan: stop losartan today continue toprol cardiology follow up - patient wants to see senior solutions consultant prior to going home Code(s): I10 - ESSENTIAL (PRIMARY) HYPERTENSION (2) Palpitations Assessment/Plan: much improved with the toprol xl echo normal loop recorder cardiac monitoring as an outpatient normal lexiscan and normal myocardial perfusion EF 65% Code(s): R00.2 - PALPITATIONS (3) HLD (hyperlipidemia) Assessment/Plan: statin Code(s): E78.5 - HYPERLIPIDEMIA, UNSPECIFIED (4) Elevated hematocrit Assessment/Plan: heme follow up prior to discharge today Code(s): R71.8 - OTHER ABNORMALITY OF RED BLOOD CELLS Assessment/Plan dc home later today after heme and cardiology follow up
--- NOTE | 2018-10-27 12:40 | CON.PULM ---
Consult Consult Specialty:: PULMONARY Referred by:: Dr Ruff Reason for Consultation:: MONAE - History of Present Illness Chief Complaint: shortness of breath History of Present Illness: 62yo male with h/o HTN, hyperlipidemia who was admitted with palpitations, shortness of breath and dizziness. Found to be polycythemic, being evaluated by hematology. Pulmonary consulted to evaluate for sleep apnea. He has been told that he is a snorer, does not know of any witnessed apneas. He does have nightly awakenings. Does not feel rested upon awakening in the morning and does wake up with a dry mouth. He does experience daytime somnolence. He is a former smoker. Wears a size 19 neck collar. - History Source History Provided By: Patient, Medical Record Limitations to Obtaining History: No Limitations - Past Medical History Cardio/Vascular: Yes: HTN - Alcohol/Substance Use Hx Alcohol Use: No - Smoking History Smoking history: Never smoked Have you smoked in the past 12 months: No - Social History Usual Living Arrangement: With Spouse ADL: Independent History of Recent Travel: No Home Medications - Allergies Allergies/Adverse Reactions: Allergies Allergy/AdvReac Type Severity Reaction Status Date / Time penicillin G Allergy Verified 10/24/18 05:28 - Home Medications Home Medications: Ambulatory Orders Amlodipine Bes/Olmesartan Med [Amlodipine-Olmesartan 5-40 mg] 1 each PO ONCE Atorvastatin Ca [Lipitor] 20 mg PO HS 10/24/18 Metoprolol Succinate [Toprol Xl] 50 mg PO DAILY #30 tab.er.24h 10/26/18 Review of Systems - Review of Systems Constitutional: denies: Chills, Fever Eyes: denies: Recent Change in Vision HENT: denies: Nasal Congestion, Throat Pain Neck: denies: Stiffness, Tenderness Cardiovascular: reports: Palpitations, Shortness of Breath. denies: Chest Pain Respiratory: denies: Cough, Wheezing Gastrointestinal: denies: Abdominal Pain, Nausea, Vomiting Genitourinary: denies: Dysuria, Hematuria Neurological: reports: Dizziness. denies: Headache Endocrine: denies: Unexplained Weight Loss Physical Exam Vital Sings: Vital Signs Temperature 98 F 10/27/18 10:00 Pulse Rate 66 10/27/18 10:00 Respiratory Rate 18 10/27/18 10:00 Blood Pressure 140/75 10/27/18 10:00 O2 Sat by Pulse Oximetry (%) 94 L 10/26/18 21:00 Constitutional: Yes: Calm Eyes: Yes: Conjunctiva Clear, EOM Intact HENT: Yes: Atraumatic, Normocephalic, Other (large uvula, crowded posterior oropharynx) Neck: Yes: Supple, Trachea Midline Cardiovascular: Yes: Regular Rate and Rhythm Respiratory: Yes: Regular, Diminished (decreased breath sounds at the bases) ...Clubbing: No Gastrointestinal: Yes: Normal Bowel Sounds, Soft. No: Tenderness Edema: No Neurological: Yes: Alert, Oriented Labs: CBC, BMP 10/27/18 05:30 10/27/18 05:30 Imaging - Results Chest X-ray: Report Reviewed, Image Reviewed (no infiltrates) Problem List - Problems (1) Polycythemia Code(s): D75.1 - SECONDARY POLYCYTHEMIA (2) HLD (hyperlipidemia) Code(s): E78.5 - HYPERLIPIDEMIA, UNSPECIFIED (3) HTN (hypertension) Code(s): I10 - ESSENTIAL (PRIMARY) HYPERTENSION (4) Obstructive sleep apnea Code(s): G47.33 - OBSTRUCTIVE SLEEP APNEA (ADULT) (PEDIATRIC) Assessment/Plan Likely Obstructive Sleep Apnea Polycythemia HTN Hyperlipidemia - likely has MONAE, left contact info for outpt work up - will need outpt PFTs given his smoking history Thank you for this consult Crow Elizabeth MD
--- NOTE | 2018-10-27 13:05 | PN ---
Progress Note, Physician Chief Complaint: Palpitations History of Present Illness: 62 year old man with a pmh of HTN, HLD, Heart Murmur admitted with c/o palpitations. Telemetry showing frequent atrial premature contractions and occasional PVCs. No clinically important arrhythmias noted at this point. The patient continues to experience symptoms with the APCs. The patient's echocardiogram was essentially normal. The stress test showed no evidence of myocardial ischemia. - Current Medication List Current Medications: Active Medications Atorvastatin Calcium (Lipitor -) 20 mg PO HS [facility] Last Admin: 10/26/18 21:04 Dose: 20 mg Metoprolol Succinate (Toprol Xl -) 50 mg PO DAILY [facility] Last Admin: 10/27/18 09:23 Dose: 50 mg - Objective Vital Signs: Vital Signs Temperature 98 F 10/27/18 10:00 Pulse Rate 66 10/27/18 10:00 Respiratory Rate 18 10/27/18 10:00 Blood Pressure 140/75 10/27/18 10:00 O2 Sat by Pulse Oximetry (%) 94 L 10/26/18 21:00 Constitutional: Yes: Well Nourished, No Distress, Calm Eyes: Yes: Conjunctiva Clear, EOM Intact HENT: Yes: WNL, Atraumatic, Normocephalic Neck: Yes: WNL, Supple, Trachea Midline Cardiovascular: Yes: WNL, Regular Rate and Rhythm Respiratory: Yes: WNL, Regular, CTA Bilaterally Gastrointestinal: Yes: WNL, Normal Bowel Sounds, Soft ...Rectal Exam: Yes: Deferred Genitourinary: Yes: WNL Musculoskeletal: Yes: WNL Extremities: Yes: WNL Edema: No Peripheral Pulses WNL: Yes Integumentary: Yes: WNL Neurological: Yes: WNL, Alert, Oriented ...Motor Strength: WNL Labs: CBC, BMP 10/27/18 05:30 10/27/18 05:30 Assessment/Plan 62 year old man with a pmh of HTN, HLD, Heart Murmur admitted with c/o palpitations. Telemetry showing frequent atrial premature contractions and occasional PVCs. No clinically important arrhythmias noted at this point. The patient continues to experience symptoms with the APCs. The patient's echocardiogram was essentially normal. The stress test showed no evidence of myocardial ischemia. The patient palpitations improved quite significantly. Please continue current regimen. There is no need for further cardiac monitoring. The patient is stable for discharge. Please do not hesitate to call us PRN.
[2018-10-27 15:15] VITALS: TEMP 98.4
--- NOTE | 2018-10-27 15:16 | PN ---
Progress Note (short form) - Note Progress Note: Patient seen and examined Feels ok Denies any complaints Last Vital Signs Temp Pulse Resp BP Pulse Ox 98.4 F 67 18 140/75 94 L 10/27/18 14:00 10/27/18 14:00 10/27/18 14:00 10/27/18 10:00 10/26/18 21:00 Cor: RSR, No murmurs, No gallops Lungs: Clear to P&A Abd: Soft, Normal bowel sounds, No organomegaly Ext:No significant edema Abnormal Lab Results 10/26/18 10/27/18 10/27/18 17:00 05:30 05:30 RBC 6.19 H Hgb 17.4 H Hct 51.9 H Anion Gap 6 L BUN 20 H 21 H Home Medication List Medication Instructions Recorded Confirmed Type Amlodipine Bes/Olmesartan Med 1 each PO ONCE 10/24/18 10/24/18 History [Amlodipine-Olmesartan 5-40 mg] Atorvastatin Ca [Lipitor] 20 mg PO HS 10/24/18 10/24/18 History Active Medications Generic Name Dose Route Start Last Admin Trade Name Freq PRN Reason Stop Dose Admin Atorvastatin Calcium 20 mg 10/24/18 22:00 10/26/18 21:04 Lipitor - PO 20 mg HS JULIANNA Administration Metoprolol Succinate 50 mg 10/26/18 15:00 10/27/18 09:23 Toprol Xl - PO 50 mg DAILY JULIANNA Administration A/P 62 y/o patient with smoking, HTN, Hyperlipidemia, Erythrocytosis --? etiology Absence of WBC , diff, platelet abnormalities against dx of P. vera. Likely secondary erythrocytosis To proceed with RAJ-2 and epo levels. If unremarkable - ABG, testosterone. CT of abdomen to look for hepatosplenomegaly, renal disease. ?MONAE as etiology May need additional testing as outpatient with RBC mass and plasma volume studies. Needs to follow up outpatient for further w/u of primary versus secondary polycythemia and necessary management. secondary polycythemia seems to be more likely Contact nos. given for follow up
--- NOTE | 2018-10-27 16:51 | PATH ---
Surgical Pathology Report Patient Name: CLAIR PALENCIA Med. Rec. #: [id number] /Age/Gender: 1955 (Age: 62) / M Account: [id number] Location: EMERGENCY ROOM Taken: 10/26/2018 Received: 10/26/2018 Reported: 10/27/2018 Physicians: Juan Daniel Ruff M.D. Specimen(s) Received PERIPHERAL BLOOD 2 LAVENDER TOPS Clinical History Persistent erythrocytosis Final Diagnosis PERIPHERAL BLOOD: COMPREHENSIVE FLOW PANEL [facility] [place] [place] shows the following: INTERPRETATION: IN THE SAMPLES ANALYZED, THERE IS NO EVIDENCE OF B OR T-CELL PROLIFERATIVE DISORDERS OR INCREASED BLASTS. JAK2 (V617F) Mutation Analysis by PCR performed [facility] [place] [facility] [place], shows the following: RESULTS: JAK2 V617F MUTATION STATUS: NOT DETECTED INTERPRETATION: Negative for JAK2 (V617F) Mutation. See [facility] reports ([id number] and [id number]) for additional details. Electronically Signed Jamie Phillips M.D. Gross Description Received are 2 lavender top tubes of blood which are sent to [facility]. DL/10/26/2018 saudi/10/26/2018
[2018-10-27 17:43] VITALS: BP 148/79; PULSE 54
--- NOTE | 2018-10-27 21:14 | HOSP ---
Subjective - Review of Symptoms Cardiovascular: Yes: Palpitations Physical Examination Vital Signs: Vital Signs Temperature 98.4 F 10/27/18 14:00 Pulse Rate 54 L 10/27/18 16:00 Respiratory Rate 18 10/27/18 16:00 Blood Pressure 148/79 10/27/18 16:00 O2 Sat by Pulse Oximetry (%) 94 L 10/26/18 21:00 Constitutional: Yes: Well Nourished Eyes: Yes: WNL HENT: Yes: WNL Neck: Yes: WNL Cardiovascular: Yes: WNL, Regular Rate and Rhythm Respiratory: Yes: WNL, Regular Gastrointestinal: Yes: Normal Bowel Sounds ...Rectal Exam: Yes: Deferred Labs: CBC, BMP 10/27/18 05:30 10/27/18 05:30 Hospitalist Encounter Assessment: I was asked to see patient prior to discharge when he complained of palpitations [facility], laying in bed in no acute distress vitals signs stable ekg reviewed, regular rhythm with some artifact noted No chest pain, patient denies shortness of breath c/o of palpitations that are intermittent, but otherwise states he feels fine plan: patient has been cleared by cardiology to be discharged encouraged him to follow up with cardiology as an outpatient reasons to return to the ED discussed with patient
--- NOTE | 2018-11-13 11:07 | EKG ---
Test Reason : Blood Pressure : / mmHG Vent. Rate : 051 BPM Atrial Rate : 051 BPM P-R Int : 152 ms QRS Dur : 078 ms QT Int : 452 ms P-R-T Axes : 053 -02 031 degrees QTc Int : 416 ms SINUS BRADYCARDIA OTHERWISE NORMAL ECG WHEN COMPARED WITH ECG OF 24-OCT-2018 02:22, NO SIGNIFICANT CHANGE WAS FOUND Confirmed by NKECHI CARRASCO MD ([id number]) on 11/13/2018 11:06:42 AM Referred By: Confirmed By:NKECHI CARRASCO MD
== END 2018-10-27 20:06 | disposition home or self-care (01) | DRG 815 ==
LOC: JER 01:48 → JERBED 04:01 → J2W 19:00 → OBSVTOIN 10-25 12:39
PROVIDERS: ADMIT Family Medicine; ATTEND Family Medicine
DX: D75.1 Secondary polycythemia (principal); I47.1 Supraventricular tachycardia; R00.2 Palpitations; R55 Syncope and collapse; I10 Essential (primary) hypertension; E78.5 Hyperlipidemia, unspecified; R01.1 Cardiac murmur, unspecified; I49.9 Cardiac arrhythmia, unspecified; G47.33 Obstructive sleep apnea (adult) (pediatric)
CPT/HCPCS: 36415; 71045-TC-FY; 78452-TC; 80053; 80061; 81003; 82550; 82668; 82728; 83721; 83880; 84443; 84484; 85025; 88300-TC; 93005; 93010; 93017; 93306-TC; 93880-TC; 97116-GP; 97161-GP; 99282-25; A9502; G0378; J2785

== ENCOUNTER 2022-11-04 07:33 | Emergency (ER) | payer OTHER ==
[2022-11-04 07:37] VITALS: BMI 34.9
[2022-11-04] MEDS ORDERED: SODIUM CHLORIDE 0.9% 500 ML INFUS.BAG IV ONE (08:00)
[2022-11-04 08:31] LABS: BASO % 0.5 % (0-2.0); EOS % 1.2 % (0-4.5); HEMATOCRIT 46.2 % (35.4-49); LYMPH % 26.7 % (8-40); MCH 28.9 pg (25.7-33.7); MCHC 34.6 g/dl (32.0-35.9); MEAN CELL VOLUME 83.7 fl (80-96); MEAN PLT VOLUME 9.2 fl (7.5-11.1); MONO % 7.8 % (3.8-10.2); NEUT % 63.8 % (42.8-82.8); PLATELET COUNT 157 10^3/uL (134-434); RBC 5.53 M/mm3 (4.00-5.60); RDW 15.1 % (11.9-15.9); WHITE BLOOD COUNT 5.1 K/mm3 (4.0-10.0)
[2022-11-04 08:47] LABS: POTASSIUM 4.3 mmol/L (3.5-5.1)
[2022-11-04 08:49] LABS: CALCIUM 9.2 mg/dL (8.5-10.1); MAGNESIUM 2.1 mg/dL (1.8-2.4)
[2022-11-04 08:50] LABS: ALBUMIN 4.2 g/dl (3.4-5.0)
[2022-11-04 08:52] LABS: CREATININE 1.3 mg/dL (0.55-1.3)
[2022-11-04 08:54] LABS: BILIRUBIN,TOTAL 0.7 mg/dL (0.2-1); TOT PROT 7.5 g/dl (6.4-8.2)
[2022-11-04 09:59] LABS: PH,URINE 6.5 (5.0-8.0); URINE APPEARANCE CLEAR; URINE BILIRUBIN NEGATIVE (NEGATIVE); URINE COLOR YELLOW; URINE GLUCOSE (UA) NEGATIVE (NEGATIVE); URINE KETONE NEGATIVE (NEGATIVE); URINE LEUK ESTERASE NEGATIVE (NEGATIVE); URINE NITRITE NEGATIVE (NEGATIVE); URINE PROTEIN NEGATIVE (NEGATIVE); URINE UROBILINOGEN 0.2 mg/dL (0.2-1.0)
[2022-11-04 10:19] VITALS: RESP 18
[2022-11-04] MEDS ORDERED: CARBIDOPA/LEVODOPA 25/100 TABLET (FP) ONE (12:05)
[2022-11-04 12:17] VITALS: BP 157/89; PULSE 57; TEMP 98.3
[2022-11-04] MEDS ORDERED: CARBIDOPA/LEVODOPA 25/100 TABLET (FP) PO ONE (12:21)
== END 2022-11-04 13:11 | disposition home or self-care (01) ==
LOC: JER 07:33
DX: R42 Dizziness and giddiness (principal); Z20.822 Contact with and (suspected) exposure to COVID-19
CPT/HCPCS: 0241U-QW; 36415; 71045-TC-FY; 71275-TC; 74174-TC; 80053; 81003; 83735; 84443; 84484; 85025; 87086; 93005; 93010; 99285-25; Q9967